=== PATIENT | female | born 1950 | race Caucasian/White ===

== ENCOUNTER 2018-10-14 08:07 | Emergency (ER) | payer MEDICARE, BC ==
[2018-10-14 08:13] VITALS: TEMP 97.8
[2018-10-14] MEDS ORDERED: KETOROLAC 60 MG/2 ML VIAL IM STA (08:29)
--- NOTE | 2018-10-14 08:41 | ED ---
General Adult HPI - General Chief complaint: Fall Stated complaint: Fall Time Seen by Provider: 10/14/18 08:10 Source: patient, EMS, RN notes reviewed Mode of arrival: EMS Limitations: physical limitation - History of Present Illness Initial comments: This is a 67-year-old female who presents emergency Department after she had fallen at the custodial. Patient states she got up to try to go to the bathroom in a she was slipping on her slippers she fell onto her left side. Patient states she hit her head but there was no loss of consciousness she was not days. Patient denies any neck pain. Patient denies numbness weakness. Patient does not complaining of any chest pain palpitations or difficulty breathing. Patient denies abdominal pain. Patient denies any back pain. Patient states her left hip hurt at the time but does feel better now. She also states she hit her knee and has full range of motion but there is some pain anteriorly. - Related Data Home Medications Medication Instructions Recorded Confirmed Bisacodyl [Dulcolax] 10 mg RECTAL DAILY PRN 10/14/18 10/14/18 Ferrous Sulfate [Feosol] 325 mg PO DAILY@0800 10/14/18 10/14/18 Fluticasone Nasal [place] [Flonase 1 spr EA NOSTRIL DAILY 10/14/18 10/14/18 Nasal [place]] Furosemide [Lasix] 40 mg PO DAILY 10/14/18 10/14/18 Gabapentin [Neurontin] 100 mg PO TID 10/14/18 10/14/18 HYDROcodone/APAP 10-325MG [[place] 1 tab PO Q6H PRN 10/14/18 10/14/18 10-325] INSULIN ASPART (NovoLOG) [NovoLOG See Protocol SQ ACHS 10/14/18 10/14/18 (formulary)] Levothyroxine Sodium [Synthroid] 100 mcg PO DAILY 10/14/18 10/14/18 Magnesium Hydroxide [Milk of 2,400 mg PO DAILY PRN 10/14/18 10/14/18 Magnesia] Melatonin 6 mg PO HS 10/14/18 10/14/18 Menthol [Biofreeze] 1 applic TOPICAL Q8H PRN 10/14/18 10/14/18 Montelukast [Singulair] 10 mg PO HS 10/14/18 10/14/18 Multivitamins, Thera [Multivitamin 1 tab PO DAILY 10/14/18 10/14/18 (formulary)] Na Phos,M-B/Na Phos,Di-Ba [Fleet 133 ml RECTAL DAILY PRN 10/14/18 10/14/18 Adult] Nystatin 100,000 Unit/gm Powd 1 applic TOPICAL BID 10/14/18 10/14/18 [Mycostatin Powder] Ondansetron Odt [Zofran Odt] 8 mg PO Q8HR PRN 10/14/18 10/14/18 Pantoprazole Sodium [Protonix] 40 mg PO DAILY 10/14/18 10/14/18 Sennosides [Senna] 17.2 mg PO DAILY PRN 10/14/18 10/14/18 Allergies Allergy/AdvReac Type Severity Reaction Status Date / Time Fish Containing Products Allergy Unknown Verified 10/14/18 08:42 [Fish] iodine Allergy Anaphylaxis Verified 10/14/18 08:42 lisinopril Allergy Unknown Verified 10/14/18 08:42 losartan Allergy Unknown Verified 10/14/18 08:42 Milk Containing Products Allergy Unknown Verified 10/14/18 08:42 Penicillins Allergy Anaphylaxis Verified 10/14/18 08:42 tetanus and diphtheria Allergy Unknown Verified 10/14/18 08:42 toxoids Review of Systems ROS Statement: Those systems with pertinent positive or pertinent negative responses have been documented in the HPI. ROS Other: All systems not noted in ROS Statement are negative. Past Medical History Past Medical History: Cancer, Diabetes Mellitus Additional Past Medical History / Comment(s): ovarian cancer History of Any Multi-Drug Resistant Organisms: None Reported Past Surgical History: Cholecystectomy, Hysterectomy, Tonsillectomy Past Psychological History: No Psychological Hx Reported Smoking Status: Never smoker Past Alcohol Use History: None Reported Past Drug Use History: None Reported General Exam - General Exam Comments Initial Comments: GENERAL: Patient is well-developed and well-nourished. Patient is nontoxic and well- hydrated and is in mild distress. ENT: Neck is soft and supple. No significant lymphadenopathy is noted. Oropharynx is clear. Moist mucous membranes. Neck has full range of motion without eliciting any pain. Patient has tenderness left temporal occipital region. No hematomas noted. EYES: The sclera were anicteric and conjunctiva were pink and moist. Extraocular movements were intact and pupils were equal round and reactive to light. Eyelids were unremarkable. PULMONARY: Unlabored respirations. Good breath sounds bilaterally. No audible rales rhonchi or wheezing was noted. CARDIOVASCULAR: There is a regular rate and rhythm without any murmurs gallops or rubs. ABDOMEN: Soft and nontender with normal bowel sounds. SKIN: Patient has a superficial abrasion left knee NEUROLOGIC: Patient is alert and oriented x3. Cranial nerves II through XII are grossly intact. Motor and sensory are also intact. Normal speech, volume and content. Symmetrical smile. MUSCULOSKELETAL: Normal extremities with adequate strength and full range of motion. LYMPHATICS: No significant lymphadenopathy is noted PSYCHIATRIC: Normal psychiatric evaluation. Limitations: physical limitation Course Vital Signs 10/14/18 10/14/18 08:08 13:22 Temperature 97.8 F Pulse Rate 68 66 Respiratory 17 18 Rate Blood Pressure 129/57 130/58 O2 Sat by Pulse 93 L 100 Oximetry Medical Decision Making - Medical Decision Making X-ray of the knee is negative. X-ray of the hip is negative. Computed tomography scan of the brain and C-spine are negative. Patient was able to ambulate at the bedside. Upon discharge the patient patient told the nurse that she was having some chest pain yesterday and she was continued to having that same chest pains since that time. Patient states it was worse with palpation and deep inspiration. EKG showed normal sinus rhythm at 63 bpm WI interval is 180 QRSs 100 QT interval is 460 QTC is 478. Patient's EKG shows no ST segment elevation or depression o r T wave abnormalities are noted. - Lab Data Result diagrams: 10/14/18 13:00 10/14/18 13:00 Lab Results 10/14/18 10/14/18 10/14/18 Range/Units 13:00 13:00 13:00 WBC 5.8 (3.8-10.6) k/uL RBC 3.13 L (3.80-5.40) m/uL Hgb 9.5 L (11.4-16.0) gm/dL Hct 29.3 L (34.0-46.0) % MCV 93.5 (80.0-100.0) fL MCH 30.2 (25.0-35.0) pg MCHC 32.3 (31.0-37.0) g/dL RDW 19.8 H (11.5-15.5) % Plt Count 186 (150-450) k/uL Neutrophils % 67 % Lymphocytes % 23 % Monocytes % 5 % Eosinophils % 2 % Basophils % 0 % Neutrophils # 3.9 (1.3-7.7) k/uL Lymphocytes # 1.4 (1.0-4.8) k/uL Monocytes # 0.3 (0-1.0) k/uL Eosinophils # 0.1 (0-0.7) k/uL Basophils # 0.0 (0-0.2) k/uL Anisocytosis Slight Macrocytosis Slight Sodium 139 (137-145) mmol/L Potassium 3.0 L (3.5-5.1) mmol/L Chloride 98 (98-107) mmol/L Carbon Dioxide 36 H (22-30) mmol/L Anion Gap 5 mmol/L BUN 10 (7-17) mg/dL Creatinine 0.79 (0.52-1.04) mg/dL Est GFR (CKD-EPI)AfAm 90 (>60 ml/min/1.73 sqM) Est GFR (CKD-EPI)NonAf 78 (>60 ml/min/1.73 sqM) Glucose 112 H (74-99) mg/dL Calcium 7.3 L (8.4-10.2) mg/dL Total Bilirubin 0.8 (0.2-1.3) mg/dL AST 20 (14-36) U/L ALT 20 (9-52) U/L Alkaline Phosphatase 104 (38-126) U/L Troponin I <0.012 (0.000-0.034) ng/mL Total Protein 5.6 L (6.3-8.2) g/dL Albumin 2.6 L (3.5-5.0) g/dL Disposition Clinical Impression: Fall, Head injury, Abrasion, knee, Hypocalcemia Disposition: HOME SELF-CARE Instructions (If sedation given, give patient instructions): Fall Prevention for Older Adults (ED), Abrasion (ED) Is patient prescribed a controlled substance at d/c from ED?: No Referrals: Lauri Wells MD [Primary Care Provider] - 1-2 days Time of Disposition: 11:14
--- NOTE | 2018-10-14 09:44 | CT ---
EXAMINATION TYPE: CT brain remy sethi DATE OF EXAM: 10/14/2018 COMPARISON: None HISTORY: Fall, pain CT DLP: [address] of the brain was performed. The ventricles, basal cisterns and sulci overlying the cerebral convexities demonstrate mild enlargem ent. There is no evidence for intracranial hemorrhage or sulcal effacement. There is decreased attenuatio n about the periventricular white matter and deep white matter of both cerebral hemispheres, compatib le with chronic small vessel ischemia. No mass effects are seen. If symptoms persist consider MRI. Osseous calvarium is intact. Left occipital parietal scalp hematoma. IMPRESSION: 1. Age related atrophic and chronic small vessel ischemic change without acute intracranial process seen at this time. CT Cervical Spine: Unenhanced CT of the cervical spine was performed with bone and soft tissue window settings submitted . Coronal and sagittal reconstruction is obtained. There is normal alignment and prevertebral soft tissues. No evidence for acute cervical fracture . Scattered degenerative disc disease and spondylosis. Biapical scarring. IMPRESSION: 1. No evidence for acute fracture or subluxation of the cervical spine.
--- NOTE | 2018-10-14 10:59 | XR ---
EXAMINATION TYPE: XR Hip Complete LT DATE OF EXAM: 10/14/2018 CLINICAL HISTORY: pain TECHNIQUE: AP and frogleg views of the left hip are obtained. COMPARISON: None. FINDINGS: There is no acute fracture/dislocation evident. The joint space appears within normal li mits. The overlying soft tissue appears unremarkable. IMPRESSION: 1. There is no acute fracture or dislocation.ICD 10 NO FRACTURE, INITIAL EVALUATION
--- NOTE | 2018-10-14 10:59 | XR ---
EXAMINATION TYPE: XR knee complete LT DATE OF EXAM: 10/14/2018 CLINICAL HISTORY: pain TECHNIQUE: Three views of the left knee are obtained. COMPARISON: None. FINDINGS: There is no acute fracture/dislocation. The tri-compartment joint spaces appear within no rmal limits. The overlying soft tissue appears unremarkable. IMPRESSION: There is no acute fracture or dislocation ICD 10 NO FRACTURE, INITIAL EVALUATION
[2018-10-14 13:08] LABS: Anisocytosis Slight; Basophils % (A) 0 %; Eosinophils # (A) 0.1 k/uL (0-0.7); Eosinophils % (A) 2 %; HCT 29.3 % (34.0-46.0); HGB 9.5 gm/dL (11.4-16.0); Lymphocytes # (A) 1.4 k/uL (1.0-4.8); Lymphocytes % (A) 23 %; MCH 30.2 pg (25.0-35.0); MCHC 32.3 g/dL (31.0-37.0); MCV 93.5 fL (80.0-100.0); Macrocytosis Slight; Mean Platelet Volume 9.4; Monocytes # (A) 0.3 k/uL (0-1.0); Monocytes % (A) 5 %; Neutrophils # (A) 3.9 k/uL (1.3-7.7); Neutrophils % (A) 67 %; Platelet Count 186 k/uL (150-450); RBC 3.13 m/uL (3.80-5.40); RDW 19.8 % (11.5-15.5); WBC 5.8 k/uL (3.8-10.6)
[2018-10-14 13:22] LABS: Albumin 2.6 g/dL (3.5-5.0); Calcium 7.3 mg/dL (8.4-10.2); Total Bilirubin 0.8 mg/dL (0.2-1.3); Total Protein 5.6 g/dL (6.3-8.2)
[2018-10-14 13:23] VITALS: PULSE 66; RESP 18
[2018-10-14] MEDS ORDERED: CALCIUM CHLORIDE 100 MG/ML 10 ML SYRINGE IVP STA (14:10)
[2018-10-14] MEDS ORDERED: IBUPROFEN 600 MG TAB PO STA (14:35)
[2018-10-14 14:41] VITALS: BP 147/69
== END 2018-10-14 15:14 | disposition home or self-care (01) ==
LOC: EC 08:07
DX: S80.212A Abrasion, left knee, initial encounter (principal); E83.51 Hypocalcemia; S09.90XA Unspecified injury of head, initial encounter; R07.1 Chest pain on breathing; E11.9 Type 2 diabetes mellitus without complications; Z79.4 Long term (current) use of insulin; Z79.890 Hormone replacement therapy; Z79.899 Other long term (current) drug therapy; Z88.0 Allergy status to penicillin; Z88.7 Allergy status to serum and vaccine; Z91.011 Allergy to milk products; Z91.013 Allergy to seafood; Z91.041 Radiographic dye allergy status; Z88.8 Allergy status to other drugs, medicaments and biological substances; Z85.43 Personal history of malignant neoplasm of ovary; W01.198A Fall on same level from slipping, tripping and stumbling with subsequent striking against other object, initial encounter; Y93.89 Activity, other specified
CPT/HCPCS: 36415; 93005; 80053; 84484; 85025; 73502; 73562; 72125; 70450; 99284; 96374; 96372; J1885

== ENCOUNTER 2022-12-20 14:03 | Emergency (ER) | payer OTHER, MEDICARE, BC ==
--- NOTE | 2022-12-20 14:51 | CT ---
EXAMINATION TYPE: CT brain cspine wo con CT DLP: 1545.6 mGycm, Automated exposure control for dose reduction was used. DATE OF EXAM: 12/20/2022 2:37 PM COMPARISON: 10/14/2018 CLINICAL INDICATION:Female, 71 years old with history of pain; fall TECHNIQUE: Brain: Multiple axial CT images of the brain were obtained without IV contrast. Cspine: Axial CT images from the skull base to the inferior aspect of T2 we obtained without intraven ous contrast. Coronal and sagittal reformatted images were also reviewed. FINDINGS: Brain: Extra-axial spaces: No abnormal extra-axial fluid collections. Ventricular system: Within normal limits Cerebral parenchyma: No acute intraparenchymal hemorrhage or mass effect. The larose-white junction is well differentiated. Cerebellum: Unremarkable. Mass effect: No evidence of midline shift. Intracranial vasculature: Atherosclerotic calcifications of the intracranial vessels. Soft tissues: Normal. Calvarium/osseous structures: No depressed skull fracture. Paranasal sinuses and mastoid air cells: Clear. Visualized orbits: Bilateral aphakia Cervical spine: Fracture: None. Osseous structures: Multilevel degenerative disc disease changes with endplate spurring and disc oste ophyte complex's. Ankylosis of the left lateral facets of C3 and C4. Vertebral alignment: Within normal limits. Spinal canal/Neural Foramina: Disc osteophyte complexes at C4-C7 with at least mild spinal canal sten osis. Facet joint uncovertebral joint arthropathy scattered throughout the cervical spine with varyin g degrees of neural foraminal stenosis. Neck soft tissues: Prevertebral soft tissues are within normal limits. Other: The airway is patent. The lung apices are clear. Right chest wall [id number] tip extending out of the [id number]. There is a medialized course of the internal carotid arteries posterior to the pharynx. IMPRESSION: 1. No acute intracranial process. 2. No evidence of cervical spine fracture. 3. Moderate multilevel degenerative disc disease.
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
[2022-12-20] MEDS ORDERED: KETOROLAC 15 MG/ML 1 ML VIAL IVP STA (15:14)
[2022-12-20 15:28] VITALS: RESP 17
--- NOTE | 2022-12-20 15:54 | XR ---
EXAMINATION TYPE: XR shoulder complete LT DATE OF EXAM: 12/20/2022 3:26 PM CLINICAL INDICATION:Female, 71 years old with history of pain; COMPARISON: None TECHNIQUE: XR shoulder complete LT; shoulder was examined in AP, internally rotated and scapular Y p rojections. FINDINGS: No evidence of acute osseous pathology, joint dislocation, or soft tissue swelling. The remaining por tions of the visualized chest are unremarkable. Mild degeneration changes of the common clavicular valentin int with osteophyte formation. Small osteophyte of the inferior glenoid. IMPRESSION: 1. No acute osseous pathology. 2. Mild left shoulder osteoarthrosis.
[2022-12-20 16:33] VITALS: BP 177/77; PULSE 68; TEMP 97.8
== END 2022-12-20 16:33 | disposition home or self-care (01) ==
LOC: EC 14:03
DX: M19.012 Primary osteoarthritis, left shoulder (principal); E11.9 Type 2 diabetes mellitus without complications; Z86.59 Personal history of other mental and behavioral disorders; Z79.4 Long term (current) use of insulin; Z91.013 Allergy to seafood; Z91.041 Radiographic dye allergy status; Z88.0 Allergy status to penicillin; Z88.7 Allergy status to serum and vaccine; Z91.011 Allergy to milk products; Z88.8 Allergy status to other drugs, medicaments and biological substances; Z88.6 Allergy status to analgesic agent; V89.2XXA Person injured in unspecified motor-vehicle accident, traffic, initial encounter; Y92.411 Interstate highway as the place of occurrence of the external cause
CPT/HCPCS: 73030; 72125; 70450; 99284; 96374; J1885